=== PATIENT | male | born 1990 | race Caucasian/White ===

== ENCOUNTER 2016-11-22 16:45 | Emergency (ER) | payer BC ==
[~2016-11-22] VITALS: Ht 182.9 cm; Wt 112.0 kg
[2016-11-22 17:01] VITALS: BP 144/82
[2016-11-22] MEDS ORDERED: PERCOCET 5/31 TABLET PO (20:15)
[2016-11-22] MEDS ORDERED: MEDROL DOSEPAK4 MG PO (20:15)
[2016-11-22] MEDS ORDERED: VALIUM5 MG PO (20:15)
== END 2016-11-22 20:32 | disposition home or self-care (01) ==
LOC: EME 16:45
DX: M54.5 Low back pain (principal)
CPT/HCPCS: 72100; 99281; 99284